=== PATIENT | male | born 1955 | race Caucasian/White ===

== ENCOUNTER 2019-02-07 20:06 | Emergency (ER) | payer BC ==
[2019-02-07] MEDS ORDERED: Diphtheria,Pertussis(Acell),Tetanus Vaccine 0.5 ML SDV IM ONE (20:46)
[2019-02-07] MEDS ORDERED: Bacitracin/Neomycin/Polymyxin B Oint 0.9 GM U/D Packet TOP ONE (21:09)
--- NOTE | 2019-02-07 21:20 | EDM.PDOC ---
ED HPI GENERAL MEDICAL PROBLEM - General Chief Complaint: Laceration Stated Complaint: puncture wound Time Seen by Provider: 02/07/19 20:11 Source of Information: Reports: Patient History Limitations: Reports: No Limitations - History of Present Illness INITIAL COMMENTS - FREE TEXT/NARRATIVE: Laceration of left palm and wrist secondary to piece of wood kicking back towards patient while he was trying to saw the wood. No other complaints. Right Wrist Pain Score (Numeric/FACES): 2 - Related Data Allergies Allergy/AdvReac Type Severity Reaction Status Date / Time No Known Allergies Allergy Verified 02/07/19 20:12 Home Meds: Home Meds . [No Known Home Meds] 02/07/19 [History] Past Medical History HEENT History: Reports: Impaired Vision Neurological History: Reports: Concussion Dermatologic History: Reports: Eczema - Past Surgical History GI Surgical History: Reports: Appendectomy, Cholecystectomy, Colonoscopy Male Surgical History: Reports: Other (See Below) Other Male Surgeries/Procedures: having prostate biopsy in upcoming week, elevated PSA ED ROS GENERAL - Review of Systems Review Of Systems: ROS reveals no pertinent complaints other than HPI. ED EXAM, SKIN/RASH Exam: See Below Exam Limited By: No Limitations General Appearance: Alert, WD/WN, No Apparent Distress Eye Exam: Bilateral Eye: EOMI Throat/Mouth: Normal Voice, No Airway Compromise Head: Atraumatic, Normocephalic Neck: Supple Respiratory/Chest: No Respiratory Distress Extremities: Other (1.5cm laceration near lateral wrist over area of ulnar artery. Artery not injured. 1.25 cm laceration on palm. Tendon function intact. Wrist has full ROM. No active bleeding. Abrasion also noted on palm. ) Neurological: Alert, Oriented, Normal Cognition, Normal Gait, No Motor/Sensory Deficits Psychiatric: Normal Affect, Normal Mood Skin: Warm, Dry ED SKIN PROCEDURES - Laceration/Wound Repair Left Wrist Appearance: Subcutaneous, Linear, Clean Distal NVT: Neuro & Vascular Intact, No Tendon Injury Anesthetic Type: Local Local Anesthesia - Lidocaine (Xylocaine): 1% Plain Local Anesthetic Volume: 2cc Skin Prep: Providone-Iodine (Betadine) Exploration/Debridement/Repair: Wound Explored, In a Bloodless Field, Explored to Base, No Foreign Material Found Closed with: Sutures Lac/Wound length In cm: 1.5 Suture Size: 3-0 # of Sutures: 3 Suture Type: Nylon, Interrupted Drain Placement: No Sterile Dressing Applied: Nurse Tetanus Status Addressed: Yes Complications: No Left Ventral Hand Appearance: Subcutaneous, Linear Distal NVT: Neuro & Vascular Intact, No Tendon Injury Anesthetic Type: Local Local Anesthesia - Lidocaine (Xylocaine): 1% Plain Local Anesthetic Volume: 2cc Skin Prep: Providone-Iodine (Betadine) Exploration/Debridement/Repair: Wound Explored, In a Bloodless Field, Explored to Base, No Foreign Material Found Closed with: Sutures Lac/Wound length In cm: 1.2 Suture Size: 3-0 # of Sutures: 2 Suture Type: Nylon, Interrupted Drain Placement: No Sterile Dressing Applied: Nurse Tetanus Status Addressed: Yes Complications: No Course - Vital Signs Last Recorded V/S: Last Vital Signs Temp 36.7 C 02/07/19 20:10 Pulse 58 L 02/07/19 20:10 Resp 18 02/07/19 20:10 BP 107/72 02/07/19 20:10 Pulse Ox 100 02/07/19 20:10 - Orders/Labs/Meds Orders: Active Orders 24 hr Category Date Time Status Vaccines to be Administered [RC] PER UNIT ROUTINE Care 02/07/19 20:46 Ordered Meds: Medications Discontinued Medications Generic Name Dose Route Start Last Admin Trade Name Freq PRN Reason Stop Dose Admin Diphtheria/Tetanus/Acell Pertussis 0.5 ml 02/07/19 20:46 02/07/19 21:07 Adacel IM 02/07/19 20:47 0.5 ml .ONCE ONE Administration Lidocaine HCl 5 ml 02/07/19 20:46 02/07/19 21:07 Xylocaine-Mpf 1% INJECT 02/07/19 20:47 5 ml ONETIME ONE Administration Neomycin/Polymyxin/Bacitracin 1 each 02/07/19 21:09 02/07/19 21:12 Triple Antibiotic Oint TOP 02/07/19 21:10 1 each ONETIME ONE Administration - Re-Assessments/Exams Free Text/Narrative Re-Assessment/Exam: 02/07/19 21:18 Laceration repaired. Tetanus updated. Wound care reviewed. Precautions reviewed. Departure - Departure Time of Disposition: 21:19 Disposition: Home, Self-Care 01 Condition: Good Clinical Impression: Laceration of left hand Qualifiers: Encounter type: initial encounter Foreign body presence: without foreign body Qualified Code(s): S61.412A - Laceration without foreign body of left hand, initial encounter Laceration of left wrist Qualifiers: Encounter type: initial encounter Qualified Code(s): S61.512A - Laceration without foreign body of left wrist, initial encounter - Discharge Information *PRESCRIPTION DRUG MONITORING PROGRAM REVIEWED*: Not Applicable *COPY OF PRESCRIPTION DRUG MONITORING REPORT IN PATIENT DOUGLAS: Not Applicable Instructions: Sutured Wound Care, [id number] Referrals: Jim Yap MD [Primary Care Provider] - Additional Instructions: Sutures out in 8-10 days. Follow up as needed if any problems such as signs of infection develop. - My Orders Last 24 Hours: My Active Orders 02/07/19 20:46 Vaccines to be Administered [RC] PER UNIT ROUTINE - Assessment/Plan Last 24 Hours: My Active Orders 02/07/19 20:46 Vaccines to be Administered [RC] PER UNIT ROUTINE
== END 2019-02-07 21:35 | disposition home or self-care (01) ==
LOC: LL.ED 20:06
DX: S61.412A Laceration without foreign body of left hand, initial encounter (principal); S61.512A Laceration without foreign body of left wrist, initial encounter; Z90.49 Acquired absence of other specified parts of digestive tract; Z23 Encounter for immunization; W26.8XXA Contact with other sharp object(s), not elsewhere classified, initial encounter
CPT/HCPCS: 12002; 90471; 90715; 99282; J2001